=== PATIENT | female | born 1960 | race Caucasian/White ===

== ENCOUNTER 2016-11-05 22:25 | Emergency (ER) | payer OTHER ==
[2016-11-05] MEDS ORDERED: CHLORHEXIDINE GLUCONATE 4 % 15 ML UD TOP ONE ×2 (22:48→22:52)
[2016-11-05] MEDS ORDERED: LIDOCAINE 1% 10 ML VIAL INJ ONE (22:52)
--- NOTE | 2016-11-05 22:52 | ED.PDOC ---
History of Present Illness - General Chief Complaint: Bite: Animal/Insect/Human Stated Complaint: dog bite Time Seen by Provider: 11/05/16 22:30 Source: patient, RN notes reviewed, Vital Signs reviewed Exam Limitations: no limitations - History of Present Illness Initial Comments: Patient reports her dogs were fighting and she reached down to break them up and was bit on her Left hand. No numbness or tingling. Minimal bleeding. Timing/Duration: 1/2 hour Severity: moderate Improving Factors: rest Worsening Factors: movement Associated Symptoms: denies symptoms Allergies/Adverse Reactions: Allergies NO KNOWN ALLERGY Allergy (Verified 11/05/16 22:46) Home Medications: Ambulatory Orders Amoxicillin & Pot Clavulanate [Augmentin] 875 mg PO BID #14 tab 11/05/16 Progesterone Micronized [Progesterone] 100 mg PO 11/05/16 Sertraline HCl [Zoloft] 25 mg PO 11/05/16 Review of Systems - Review of Systems Constitutional: States: no symptoms reported Musculoskeletal: States: no symptoms reported Skin: States: see HPI Neurological: States: no symptoms reported Family Medical History - Family History Mother Family History: Unknown Physical Exam - Physical Exam General Appearance: Alert, Comfortable, No apparent distress, Well Developed, Well Groomed, Well Hydrated, Well Nourished Respiratory: no respiratory distress, no accessory muscle use Extremity: normal range of motion, other - Left hand - ~ 2 cm laceration over lateral aspect of 2nd MCP joint, irregular, minimal bleeding. L 5th finger - small abrasion/puncture on lateral aspect of Prox Phalynx Neurologic: no motor/sensory deficits, alert, normal mood/affect, oriented x 3 Skin Exam: other - see above Comments: Vital Signs - 24 hr 11/05/16 22:49 Temperature 98.9 F Pulse Rate [ 72 left] Respiratory 18 Rate Blood Pressure 122/89 [left] O2 Sat by Pulse 98 Oximetry Procedures - Laceration/Wound Repair Left Medial Hand Wound's Depth, Shape: superficial, irregular Wound Explored: no foreign body removed Irrigated w/ Saline (cc's): 0 - soaked in hibiclens X 15 minutes Betadine Prep?: No Anesthesia: 1% Lidocaine Volume Anesthetic (cc's): 3 Wound Debrided: minimal Wound Repaired With: sutures Suture Size/Type: 5:0, prolene Number of Sutures: 3 Layer Closure?: No Sterile Dressing Applied?: Yes Splint Applied?: No Sling Applied?: No Departure - Departure Clinical Impression: Laceration of left hand without complication, excluding fingers Qualifiers: Encounter type: initial encounter Qualifier Code: (S61.412A) Laceration without foreign body of left hand, initial encounter Time of Disposition: 23:29 Disposition: Discharge to Home or Self Care Condition: Good Departure Forms: ED Discharge - Pt. Copy, Patient Portal Self Enrollment Instructions: DI for Laceration Repair -- Simple, DI for Animal Bites Diet: resume usual diet Activity: increase activity as tolerated Prescriptions: Amoxicillin & Pot Clavulanate [Augmentin] 875 mg PO BID #14 tab Home Medications: Ambulatory Orders Amoxicillin & Pot Clavulanate [Augmentin] 875 mg PO BID #14 tab 11/05/16 Progesterone Micronized [Progesterone] 100 mg PO 11/05/16 Sertraline HCl [Zoloft] 25 mg PO 11/05/16 Additional Instructions: Suture removal in 7 days.
[2016-11-05 23:08] VITALS: BP 122/89; TEMP 98.9; O2SAT 98
== END 2016-11-05 23:36 | disposition home or self-care (01) ==
LOC: ER 22:25
DX: S61.452A Open bite of left hand, initial encounter (principal); W54.0XXA Bitten by dog, initial encounter